=== PATIENT | male | born 1950 | race Caucasian/White ===

== ENCOUNTER 2024-04-13 09:27 | Outpatient (CLI) | payer OTHER, SELFPAY ==
--- NOTE | 2024-04-13 11:43 | W.ANESCHARGE ---
Anesthesia Charges Start Date/Time Anesthesia Start Date: 04/13/24 Anesthesia Start Time: 11:15 Stop Date/Time Anesthesia Stop Date: 04/13/24 Anesthesia Stop Time: 11:58 Summary Extremes of Age - Over 70 or under 1: MDA
--- NOTE | 2024-04-13 11:59 | P.ANES_ITS ---
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
== END 2024-04-13 09:28 | disposition home or self-care (01) ==
LOC: OP CLINIC 09:29
PROVIDERS: PCP Internal Medicine; Visit Provider Surgery
DX: Z86.010 Personal history of colon polyps (principal); K63.5 Polyp of colon; K57.30 Diverticulosis of large intestine without perforation or abscess without bleeding
CPT/HCPCS: 00811; 45385; 88305; 99100; J2704